=== PATIENT | male | born 1980 | race African-American/Black ===

== ENCOUNTER 2018-04-24 22:48 | Inpatient (IN) | payer MEDICAID ==
[~2018-04-24] VITALS: Ht 182.9 cm; Wt 93.4 kg
[2018-04-24] MEDS ORDERED: SODIUM CHLORIDE 0.9% 1,000 ML IV ONE (23:44)
[2018-04-24] MEDS ORDERED: MORPHINE SULFATE 4 MG/ML CPJ (NOT FOR IM USE) IV STA (23:44)
[2018-04-24] MEDS ORDERED: ONDANSETRON HCL 4MG/2ML INJ IV STA (23:44)
[2018-04-24] MEDS ORDERED: CLOPIDOGREL 75MG TABLET PO ONE (23:45)
[2018-04-25 00:40] LABS: BASOPHILS % 0.5 % (0.0-2.0); EOSINOPHILS % 0.5 % (0.0-5.0); HEMATOCRIT. 41.3 % (42.0-52.0); LYMPHOCYTES % 32.7 % (20.0-50.0); MEAN CORPUSCULAR HEMOGLOBIN 23.6 pg (28.0-32.0); MONOCYTES % 8.7 % (2.0-8.0); NEUTROPHILS % 57.6 % (40.0-76.0); RED BLOOD CELL COUNT 5.51 mill/uL (4.7-6.1)
[2018-04-25 00:51] LABS: CHLORIDE 97 mEq/L (98-107)
[2018-04-25] MEDS ORDERED: ONDANSETRON HCL 4MG/2ML INJ IV STA (01:01)
[2018-04-25] MEDS ORDERED: MORPHINE SULFATE 4 MG/ML CPJ (NOT FOR IM USE) IV STA (01:01)
[2018-04-25 01:13] LABS: PLATELET 98 x1000/uL (130-400)
[2018-04-25] MEDS ORDERED: POTASSIUM CHLORIDE 20MEQ TABLET SR PO ONE (01:15)
[2018-04-25 01:25] LABS: INR 1.1; PARTIAL THROMBOPLASTIN TIME 25.6 sec (23.4-31.0); PROTHROMBIN TIME 10.8 sec (9.1-11.1)
[2018-04-25] MEDS: MORPHINE SULFATE 4 MG/ML CPJ (NOT FOR IM USE) IV PRN ×5 (03:46→21:13)
[2018-04-25 08:00] VITALS: BP 95/52
[2018-04-25 08:30] VITALS: BP 95/52
[2018-04-25 10:36] VITALS: BP 95/52
[2018-04-25] MEDS ORDERED: LISI2.5T47 MT (11:00)
[2018-04-25] MEDS ORDERED: FERR325T6 MT (11:00)
[2018-04-25] MEDS ORDERED: HYDR25TA MT (11:00)
[2018-04-25] MEDS ORDERED: FURO40TA5 MT (11:00)
[2018-04-25] MEDS ORDERED: BENA20TA10 MT (11:00)
[2018-04-25] MEDS ORDERED: LEVE500T19 MT (11:00)
[2018-04-25] MEDS ORDERED: FAMO20TA8 MT (11:00)
[2018-04-25] MEDS ORDERED: S350 MT (11:00)
[2018-04-25] MEDS ORDERED: CLOP75TA33 MT (11:00)
[2018-04-25] MEDS ORDERED: GABA-290 MT (11:00)
[2018-04-25] MEDS: CLOPIDOGREL 75MG TABLET PO SCH (11:30)
[2018-04-25] MEDS ORDERED: ACETAMINOPHEN 325MG TABLET PO PRN (11:30)
[2018-04-25] MEDS ORDERED: HYDROCODONE/ACETAMINOPHEN 5/325MG TABLET PO PRN (11:30)
[2018-04-25] MEDS ORDERED: CLONIDINE 0.1MG TABLET PO PRN (11:30)
[2018-04-25] MEDS ORDERED: IPRATROPIUM/ALBUTEROL 0.5-3(2.5)MG/3ML NEB INH PRN (11:30)
[2018-04-25] MEDS ORDERED: DOCUSATE SODIUM 100MG CAPSULE PO PRN (11:30)
[2018-04-25] MEDS ORDERED: ONDANSETRON HCL 4MG/2ML INJ IV PRN (11:30)
[2018-04-25] MEDS ORDERED: MAGNESIUM/ALUMINUM HYDROXIDE/SIMETHICONE 30ML UDC PO PRN (11:30)
[2018-04-25] MEDS: BENAZEPRIL 10MG TABLET PO SCH (11:30)
[2018-04-25] MEDS: ASPIRIN 81MG EC TABLET PO SCH (11:30)
[2018-04-25 12:00] VITALS: BP 100/56
[2018-04-25] MEDS: LEVETIRACETAM 500MG TABLET PO SCH ×2 (12:24→21:10)
[2018-04-25] MEDS: FERROUS SULFATE 325MG TABLET PO SCH ×2 (12:24→18:33)
[2018-04-25 16:00] VITALS: BP 110/69
[2018-04-25 16:19] LABS: CREATINE KINASE 162 IU/L (39-308); CREATINE KINASE MB FRACTION 2.3 ng/mL (0.5-3.6)
[2018-04-25] MEDS ORDERED: DEXTROSE 50% WATER 50ML SYRINGE IV PRN (18:15)
[2018-04-25] MEDS ORDERED: INFLUENZA VIRUS VACCINE(AFLURIA) 0.5ML SYR IM ONE (19:00)
[2018-04-25] MEDS ORDERED: QUET25TA34 MT (19:31)
[2018-04-25] MEDS ORDERED: PHEN100C4 MT (19:31)
[2018-04-25] MEDS ORDERED: POTA20TA82 MT (19:31)
[2018-04-25] MEDS ORDERED: SIMV80TA70 MT (19:31)
[2018-04-25 20:00] VITALS: BP 117/67
[2018-04-25] MEDS: INSULIN LISPRO 100 UNITS/ML SUBCUT SCH (21:00)
[2018-04-25] MEDS: FAMOTIDINE 20MG TABLET PO SCH (21:11)
[2018-04-25] MEDS: BLOOD SUGAR DIAGNOSTIC STRIP TEST SCH (21:35)
[2018-04-25] MEDS: ZOLPIDEM TARTRATE 5MG TABLET PO PRN (23:37)
[2018-04-26] VITALS: BP 114/68
[2018-04-26 00:14] LABS: CREATINE KINASE 153 IU/L (39-308); CREATINE KINASE MB FRACTION 2.2 ng/mL (0.5-3.6)
[2018-04-26] MEDS: MORPHINE SULFATE 4 MG/ML CPJ (NOT FOR IM USE) IV PRN ×6 (01:00→22:50)
[2018-04-26 04:00] VITALS: BP 116/70
[2018-04-26 06:53] LABS: BASOPHILS % 0.5 % (0.0-2.0); HEMATOCRIT. 36.3 % (42.0-52.0); HEMOGLOBIN. 11.4 g/dL (14.0-18.0); LYMPHOCYTES % 51.5 % (20.0-50.0); MEAN CORPUSCULAR HEMOGLOBIN 23.3 pg (28.0-32.0); MEAN CORPUSCULAR VOLUME 74.3 fL (80.0-94.0); MEAN PLATELET VOLUME 11.3 fl (7.4-10.4); MONOCYTES % 10.4 % (2.0-8.0); NEUTROPHILS % 35.6 % (40.0-76.0); PLATELET 85 x1000/uL (130-400); RED BLOOD CELL COUNT 4.89 mill/uL (4.7-6.1); RED CELL DISTRIBUTION WIDTH 14.8 % (11.6-14.6)
[2018-04-26 06:55] LABS: CHLORIDE 101 mEq/L (98-107)
[2018-04-26 07:23] LABS: HDL CHOLESTEROL 98 mg/dL (40-59); LDL CHOLESTEROL 83 mg/dL (5-100); T4 FREE 0.96 ng/dL (0.76-1.46)
[2018-04-26] MEDS: INSULIN LISPRO 100 UNITS/ML SUBCUT SCH ×4 (07:50→21:00)
[2018-04-26] MEDS: BLOOD SUGAR DIAGNOSTIC STRIP TEST SCH ×4 (07:58→20:48)
[2018-04-26 08:00] VITALS: BP 108/61
[2018-04-26] MEDS: GABAPENTIN 300MG CAPSULE PO SCH (08:57)
[2018-04-26] MEDS: FERROUS SULFATE 325MG TABLET PO SCH ×3 (08:57→17:49)
[2018-04-26] MEDS: LEVETIRACETAM 500MG TABLET PO SCH ×2 (08:57→20:48)
[2018-04-26] MEDS: ASPIRIN 81MG EC TABLET PO SCH (08:57)
[2018-04-26] MEDS: CLOPIDOGREL 75MG TABLET PO SCH (08:57)
[2018-04-26] MEDS: BENAZEPRIL 10MG TABLET PO SCH (08:58)
[2018-04-26] MEDS: FUROSEMIDE 40MG/4ML VIAL IVP SCH (08:58)
[2018-04-26] MEDS ORDERED: HYDROCHLOROTHIAZIDE 25MG TABLET PO SCH (09:00)
[2018-04-26 12:00] VITALS: BP 118/69
[2018-04-26 16:00] VITALS: BP 119/75
[2018-04-26 20:00] VITALS: BP 117/69
[2018-04-26] MEDS: FAMOTIDINE 20MG TABLET PO SCH (20:48)
[2018-04-27] VITALS: BP 112/64
[2018-04-27] MEDS: ZOLPIDEM TARTRATE 5MG TABLET PO PRN (00:42)
[2018-04-27 04:00] VITALS: BP 116/68
[2018-04-27] MEDS: MORPHINE SULFATE 4 MG/ML CPJ (NOT FOR IM USE) IV PRN ×2 (05:34→09:59)
[2018-04-27] MEDS: BLOOD SUGAR DIAGNOSTIC STRIP TEST SCH ×2 (06:50→12:38)
[2018-04-27] MEDS: INSULIN LISPRO 100 UNITS/ML SUBCUT SCH ×2 (07:16→12:41)
[2018-04-27 08:02] VITALS: BP 121/82
[2018-04-27] MEDS ORDERED: REGADENOSON 0.4 MG/5 ML IV SCH (08:45)
[2018-04-27] MEDS: FUROSEMIDE 40MG/4ML VIAL IVP SCH (10:00)
[2018-04-27] MEDS ORDERED: REGADENOSON 0.4 MG/5 ML IV ONE (11:10)
[2018-04-27] MEDS: GABAPENTIN 300MG CAPSULE PO SCH (12:13)
[2018-04-27] MEDS: CLOPIDOGREL 75MG TABLET PO SCH (12:13)
[2018-04-27] MEDS: LEVETIRACETAM 500MG TABLET PO SCH (12:14)
[2018-04-27] MEDS: FERROUS SULFATE 325MG TABLET PO SCH ×2 (12:15→12:50)
[2018-04-27] MEDS: ASPIRIN 81MG EC TABLET PO SCH (12:15)
[2018-04-27] MEDS: BENAZEPRIL 10MG TABLET PO SCH (12:15)
[2018-04-27 12:23] VITALS: BP 116/80
== END 2018-04-27 14:00 | disposition home or self-care (01) | DRG 203 ==
LOC: ER 22:48 → 6WST 04-25 01:08 → EDBEDREQ 04-25 01:09 → EDBEDREQTM 04-25 01:09 → ENRESERV 04-25 06:10
PROVIDERS: ADMIT Internal Medicine; ATTEND Internal Medicine
DX: M94.0 Chondrocostal junction syndrome [Tietze] (principal); D69.6 Thrombocytopenia, unspecified; E87.8 Other disorders of electrolyte and fluid balance, not elsewhere classified; G81.94 Hemiplegia, unspecified affecting left nondominant side; E83.51 Hypocalcemia; I25.10 Atherosclerotic heart disease of native coronary artery without angina pectoris; I42.9 Cardiomyopathy, unspecified; E11.9 Type 2 diabetes mellitus without complications; D50.9 Iron deficiency anemia, unspecified; D63.8 Anemia in other chronic diseases classified elsewhere; J98.11 Atelectasis; I10 Essential (primary) hypertension; J44.9 Chronic obstructive pulmonary disease, unspecified; I25.2 Old myocardial infarction; Z95.0 Presence of cardiac pacemaker; Z95.5 Presence of coronary angioplasty implant and graft; Z82.49 Family history of ischemic heart disease and other diseases of the circulatory system; Z88.8 Allergy status to other drugs, medicaments and biological substances; Z88.6 Allergy status to analgesic agent; E87.6 Hypokalemia
CPT/HCPCS: 36415; 71045; 78452; 80061; 82550; 82553; 82962; 83880; 84439; 84443; 84481; 84484; 90686; 93005; 93017; 93306; 93970; 96361; 96374; 96375; 96376; 99285; A9500; J1815; J1940; J2270; J2405; J2785; J7030

== ENCOUNTER 2020-08-12 01:58 | Emergency (ER) | payer MEDICAID ==
[~2020-08-12] VITALS: Ht 190.5 cm; Wt 93.0 kg
[~2020-08-12 01:58] MED LIST: BENA20TA10 MT; CARI350T28 MT; CLOP75TA33 MT; FAMO20TA8 MT; FERR325T6 MT; FURO40TA5 MT; GABA-290 MT; HYDR25TA MT; LEVE500T19 MT; LISI2.5T47 MT; PHEN100C4 MT; POTA20TA82 MT; QUET25TA34 MT; SIMV80TA90 MT
[2020-08-12] MEDS ORDERED: ASPIRIN 81MG TABLET PO ONE (02:30)
[2020-08-12] MEDS ORDERED: NITROGLYCERIN 0.4MG TABLET SL SL ONE (02:30)
[2020-08-12] MEDS ORDERED: DIPHENHYDRAMINE 25MG CAPSULE PO ONE (02:30)
[2020-08-12] MEDS ORDERED: LIDOCAINE 5% PATCH TOP SCH (02:45)
[2020-08-12 02:50] LABS: BASOPHILS % 0.3 % (0.0-2.0); EOSINOPHILS % 1.3 % (0.0-5.0); HEMOGLOBIN. 11.8 g/dL (14.0-18.0); LYMPHOCYTES % 15.8 % (20.0-50.0); MEAN CORPUSCULAR HEMOGLOBIN 24.2 pg (28.0-32.0); MEAN CORPUSCULAR VOLUME 76.1 fL (80.0-94.0); MEAN PLATELET VOLUME 10.9 fl (7.4-10.4); MONOCYTES % 11.8 % (2.0-8.0); NEUTROPHILS % 70.8 % (40.0-76.0); PLATELET 113 x1000/uL (130-400); RED BLOOD CELL COUNT 4.87 mill/uL (4.7-6.1); RED CELL DISTRIBUTION WIDTH 14.9 % (11.6-14.6)
[2020-08-12 03:02] LABS: CHLORIDE 99 mEq/L (98-107)
[2020-08-12] MEDS ORDERED: POTASSIUM CHLORIDE 20MEQ TABLET SR PO NR (03:15)
[2020-08-12 04:00] VITALS: BP 125/77
== END 2020-08-12 05:59 | disposition home or self-care (01) ==
LOC: ER 01:58
DX: E87.6 Hypokalemia (principal); R07.89 Other chest pain; I25.2 Old myocardial infarction; R46.89 Other symptoms and signs involving appearance and behavior; J44.9 Chronic obstructive pulmonary disease, unspecified; J45.909 Unspecified asthma, uncomplicated; G40.909 Epilepsy, unspecified, not intractable, without status epilepticus; E78.00 Pure hypercholesterolemia, unspecified; Z95.5 Presence of coronary angioplasty implant and graft; Z91.14 Patient's other noncompliance with medication regimen; Z95.0 Presence of cardiac pacemaker; Z88.6 Allergy status to analgesic agent; Z88.8 Allergy status to other drugs, medicaments and biological substances; Z98.84 Bariatric surgery status
CPT/HCPCS: 36415; 71045; 80053; 83880; 84484; 85025; 93005; 99285; Q0163; Z7610

== ENCOUNTER 2021-02-17 22:17 | Inpatient (IN) | payer MEDICAID ==
[~2021-02-17] VITALS: Ht 188 cm; Wt 111.1 kg
[~2021-02-17 22:17] MED LIST changes: -QUET25TA34 MT; +QUET25TA36 MT
[2021-02-17] MEDS ORDERED: MORPHINE SULFATE 4 MG/ML CPJ (NOT FOR IM USE) IV STA (23:13)
[2021-02-18] MEDS ORDERED: DIPHENHYDRAMINE 25MG CAPSULE PO NR
[2021-02-18 00:09] LABS: BASOPHILS % 0.9 % (0.0-2.0); EOSINOPHILS % 2.9 % (0.0-5.0); HEMATOCRIT. 31.2 % (42.0-52.0); HEMOGLOBIN. 9.8 g/dL (14.0-18.0); LYMPHOCYTES % 36.9 % (20.0-50.0); MEAN CORPUSCULAR HEMOGLOBIN 22.8 pg (28.0-32.0); MEAN CORPUSCULAR VOLUME 72.9 fL (80.0-94.0); MEAN PLATELET VOLUME 10.5 fl (7.4-10.4); MONOCYTES % 10.5 % (2.0-8.0); NEUTROPHILS % 48.8 % (40.0-76.0); PLATELET 113 x1000/uL (130-400); RED BLOOD CELL COUNT 4.28 mill/uL (4.7-6.1); RED CELL DISTRIBUTION WIDTH 14.8 % (11.6-14.6)
[2021-02-18 00:14] LABS: INR 1.1; PROTHROMBIN TIME 11.7 sec (9.6-11.0)
[2021-02-18] MEDS ORDERED: SODIUM CHLORIDE 0.9% 500 ML IV ONE (03:15)
[2021-02-18] MEDS ORDERED: MORPHINE SULFATE 2 MG/ML CPJ (NOT FOR IM USE) IV NR (04:45)
[2021-02-18 04:58] LABS: CHLORIDE 102 mEq/L (98-107)
[2021-02-18 09:55] VITALS: BP 117/72
[2021-02-18] MEDS ORDERED: ONDANSETRON HCL 4MG/2ML INJ IV PRN (10:30)
[2021-02-18] MEDS ORDERED: KETOROLAC 30MG/ML VIAL IV PRN (10:30)
[2021-02-18 12:00] VITALS: BP 132/71
[2021-02-18] MEDS: TRAMADOL 50MG TABLET PO PRN (12:17)
[2021-02-18] MEDS: DIPHENHYDRAMINE 25MG CAPSULE PO PRN (12:18)
[2021-02-18] MEDS ORDERED: MEDICATION NOT ON FORMULARY EA (Simvastatin 1 TAB) MT SCH (12:45)
[2021-02-18] MEDS ORDERED: MEDICATION NOT ON FORMULARY EA (Benazepril Hcl 1 TAB) MT SCH (12:45)
[2021-02-18] MEDS ORDERED: MEDICATION NOT ON FORMULARY EA (Gabapentin 1 TAB) MT SCH (13:00)
[2021-02-18] MEDS ORDERED: *PATIENT'S OWN MEDICATION STORAGE XX SCH (13:15)
[2021-02-18] MEDS ORDERED: NALOXONE HCL 0.4MG/ML VIAL IV PRN (13:30)
[2021-02-18 14:00] VITALS: BP 123/74
[2021-02-18] MEDS ORDERED: CARISOPRODOL 350 MG TABLET PO PRN (14:30)
[2021-02-18] MEDS: PHENYTOIN SODIUM EXTENDED 100MG CAPSULE PO SCH ×2 (14:32→17:04)
[2021-02-18] MEDS: POTASSIUM CHLORIDE 20MEQ TABLET SR PO SCH (14:32)
[2021-02-18] MEDS: BENAZEPRIL 10MG TABLET PO SCH (14:32)
[2021-02-18] MEDS: CLOPIDOGREL 75MG TABLET PO SCH (14:33)
[2021-02-18] MEDS: HYDROCHLOROTHIAZIDE 25MG TABLET PO SCH (14:33)
[2021-02-18] MEDS: LISINOPRIL 2.5MG TABLET PO SCH (14:33)
[2021-02-18] MEDS: FUROSEMIDE 40MG TABLET PO SCH (14:36)
[2021-02-18 16:10] VITALS: BP 116/75
[2021-02-18] MEDS ORDERED: MEDICATION NOT ON FORMULARY EA (Ferrous Sulfate 1 TAB) MT SCH (17:00)
[2021-02-18] MEDS: GABAPENTIN 300MG CAPSULE PO SCH (17:04)
[2021-02-18] MEDS: LEVETIRACETAM 500MG TABLET PO SCH (17:04)
[2021-02-18] MEDS: FERROUS SULFATE 325MG TABLET PO SCH (17:04)
[2021-02-18] MEDS ORDERED: OXYC-611 PO (17:59)
[2021-02-18] MEDS ORDERED: NON FORMULARY PATIENT HOME MED XX SCH (18:15)
[2021-02-18] MEDS: OXYCODONE HCL 10MG TABLET SR 12HR PO SCH (19:55)
[2021-02-18 20:00] VITALS: BP 126/59
[2021-02-18] MEDS: QUETIAPINE FUMARATE 25MG TABLET PO SCH (21:18)
[2021-02-18] MEDS: ATORVASTATIN CALCIUM 40MG TABLET PO SCH (21:18)
[2021-02-18] MEDS: FAMOTIDINE 20MG TABLET PO SCH (21:18)
[2021-02-19] VITALS: BP 100/59
[2021-02-19 04:00] VITALS: BP 105/51
[2021-02-19 05:25] LABS: BASOPHILS % 0.7 % (0.0-2.0); EOSINOPHILS % 5.8 % (0.0-5.0); HEMATOCRIT. 38.7 % (42.0-52.0); HEMOGLOBIN. 12.1 g/dL (14.0-18.0); LYMPHOCYTES % 43.5 % (20.0-50.0); MEAN CORPUSCULAR HEMOGLOBIN 22.8 pg (28.0-32.0); MEAN CORPUSCULAR VOLUME 73.1 fL (80.0-94.0); MEAN PLATELET VOLUME 10.2 fl (7.4-10.4); MONOCYTES % 13.3 % (2.0-8.0); NEUTROPHILS % 36.7 % (40.0-76.0); PLATELET 122 x1000/uL (130-400); RED CELL DISTRIBUTION WIDTH 14.3 % (11.6-14.6)
[2021-02-19] MEDS: TRAMADOL 50MG TABLET PO PRN ×2 (05:38→20:39)
[2021-02-19] MEDS: DIPHENHYDRAMINE 25MG CAPSULE PO PRN ×4 (05:40→17:20)
[2021-02-19 06:11] LABS: CHLORIDE 99 mEq/L (98-107)
[2021-02-19 06:21] LABS: LDL CHOLESTEROL 118 mg/dL (5-100)
[2021-02-19 06:23] LABS: CREATINE KINASE 274 IU/L (39-308)
[2021-02-19 06:24] LABS: HDL CHOLESTEROL 97 mg/dL (40-59)
[2021-02-19 08:00] VITALS: BP 114/78
[2021-02-19] MEDS: FERROUS SULFATE 325MG TABLET PO SCH ×2 (09:26→17:20)
[2021-02-19] MEDS: FUROSEMIDE 40MG TABLET PO SCH (09:26)
[2021-02-19] MEDS: BENAZEPRIL 10MG TABLET PO SCH (09:26)
[2021-02-19] MEDS: HYDROCHLOROTHIAZIDE 25MG TABLET PO SCH (09:26)
[2021-02-19] MEDS: LISINOPRIL 2.5MG TABLET PO SCH (09:26)
[2021-02-19] MEDS: LEVETIRACETAM 500MG TABLET PO SCH ×2 (09:26→17:20)
[2021-02-19] MEDS: POTASSIUM CHLORIDE 20MEQ TABLET SR PO SCH (09:27)
[2021-02-19] MEDS: PHENYTOIN SODIUM EXTENDED 100MG CAPSULE PO SCH ×3 (09:27→17:20)
[2021-02-19] MEDS: GABAPENTIN 300MG CAPSULE PO SCH ×3 (09:27→17:20)
[2021-02-19] MEDS: FAMOTIDINE 20MG TABLET PO SCH ×2 (09:27→20:39)
[2021-02-19] MEDS: CLOPIDOGREL 75MG TABLET PO SCH (09:27)
[2021-02-19] MEDS: OXYCODONE HCL 10MG TABLET SR 12HR PO SCH ×3 (09:29→17:19)
[2021-02-19 12:00] VITALS: BP 120/77
[2021-02-19 16:00] VITALS: BP 113/57
[2021-02-19] MEDS ORDERED: HYDRALAZINE 20MG/ML VIAL IV PRN (19:45)
[2021-02-19 20:00] VITALS: BP 99/61
[2021-02-19] MEDS: QUETIAPINE FUMARATE 25MG TABLET PO SCH (20:38)
[2021-02-19] MEDS: ATORVASTATIN CALCIUM 40MG TABLET PO SCH (20:39)
[2021-02-20 00:14] LABS: *AMPHETAMINES SCREEN URINE NEGATIVE (NEGATIVE); CANNABINOID URINE SCREEN NEGATIVE (NEGATIVE); METHADONE URINE SCREEN NEGATIVE (NEGATIVE); OPIATES URINE SCREEN PRESUMTIVE POSITIVE (NEGATIVE); PHENCYCLIDINE URINE SCREEN NEGATIVE (NEGATIVE)
[2021-02-20 00:15] LABS: *BARBITURATES SCREEN URINE NEGATIVE (NEGATIVE); *BENZODIAZEPINES SCREEN URINE NEGATIVE (NEGATIVE); *COCAINE SCREEN URINE NEGATIVE (NEGATIVE)
[2021-02-20] MEDS: TRAMADOL 50MG TABLET PO PRN ×2 (03:06→11:40)
[2021-02-20] MEDS: DIPHENHYDRAMINE 25MG CAPSULE PO PRN ×3 (03:07→16:28)
[2021-02-20 04:00] VITALS: BP 107/61
[2021-02-20 08:00] VITALS: BP 112/68
[2021-02-20] MEDS: GABAPENTIN 300MG CAPSULE PO SCH ×3 (08:05→16:28)
[2021-02-20] MEDS: POTASSIUM CHLORIDE 20MEQ TABLET SR PO SCH (08:06)
[2021-02-20] MEDS: PHENYTOIN SODIUM EXTENDED 100MG CAPSULE PO SCH ×3 (08:06→16:28)
[2021-02-20] MEDS: FUROSEMIDE 40MG TABLET PO SCH (08:06)
[2021-02-20] MEDS: LEVETIRACETAM 500MG TABLET PO SCH ×2 (08:06→16:28)
[2021-02-20] MEDS: OXYCODONE HCL 10MG TABLET SR 12HR PO SCH ×3 (08:06→17:01)
[2021-02-20] MEDS: FERROUS SULFATE 325MG TABLET PO SCH ×2 (08:07→16:28)
[2021-02-20] MEDS: FAMOTIDINE 20MG TABLET PO SCH (08:07)
[2021-02-20] MEDS: HYDROCHLOROTHIAZIDE 25MG TABLET PO SCH (08:07)
[2021-02-20] MEDS: BENAZEPRIL 10MG TABLET PO SCH (08:07)
[2021-02-20] MEDS: CLOPIDOGREL 75MG TABLET PO SCH (08:07)
[2021-02-20] MEDS ORDERED: REGADENOSON 0.4 MG/5 ML IV NR (09:00)
[2021-02-20] MEDS ORDERED: FENTANYL CITRATE/PF 50MCG/ML 5ML VIAL ONE (09:01)
[2021-02-20] MEDS ORDERED: DIPHENHYDRAMINE 50MG/ML VIAL IV NR (09:01)
[2021-02-20] MEDS ORDERED: DIPHENHYDRAMINE 50MG/ML VIAL ONE (09:01)
[2021-02-20] MEDS ORDERED: MIDAZOLAM HCL 5 MG/5 ML VIAL ONE (09:01)
[2021-02-20] MEDS ORDERED: REGADENOSON 0.4 MG/5 ML IV ONE (09:11)
[2021-02-20 11:03] LABS: INR 1.1; PARTIAL THROMBOPLASTIN TIME 21.2 sec (23.4-31.0); PROTHROMBIN TIME 11.5 sec (9.6-11.0)
[2021-02-20 11:04] LABS: CHLORIDE 100 mEq/L (98-107)
[2021-02-20 11:32] LABS: HEMATOCRIT. 40.9 % (42.0-52.0); HEMOGLOBIN. 13.2 g/dL (14.0-18.0); MEAN CORPUSCULAR HEMOGLOBIN 23.2 pg (28.0-32.0); MEAN CORPUSCULAR VOLUME 72.2 fL (80.0-94.0); RED BLOOD CELL COUNT 5.67 mill/uL (4.7-6.1); RED CELL DISTRIBUTION WIDTH 14.7 % (11.6-14.6)
[2021-02-20 12:00] VITALS: BP 114/69
[2021-02-20] MEDS ORDERED: BENA20TA10 MT (12:53)
[2021-02-20] MEDS ORDERED: FAMO20TA8 MT (12:57)
[2021-02-20] MEDS ORDERED: QUET25TA36 MT (12:57)
[2021-02-20] MEDS ORDERED: LISI2.5T47 MT (12:57)
[2021-02-20] MEDS ORDERED: LEVE500T19 MT (12:57)
[2021-02-20] MEDS ORDERED: HYDR-4001 MT (12:57)
[2021-02-20] MEDS ORDERED: PHEN100C4 MT (12:57)
[2021-02-20] MEDS ORDERED: FURO40TA5 MT (12:57)
[2021-02-20] MEDS ORDERED: CLOP75TA33 MT (12:57)
[2021-02-20] MEDS ORDERED: HYDR25TA MT (12:57)
[2021-02-20] MEDS ORDERED: POTA20TA82 MT (12:57)
[2021-02-20] MEDS ORDERED: GABA-290 MT (12:57)
[2021-02-20] MEDS ORDERED: SIMV80TA90 MT (12:57)
[2021-02-20 13:20] LABS: PLATELET 130 x1000/uL (130-400)
[2021-02-20 13:23] LABS: PLATELET ESTIMATE NORMAL
[2021-02-20 14:53] VITALS: BP 114/69
[2021-02-20 16:00] VITALS: BP 108/66
[2021-02-20 17:01] VITALS: BP 114/69
== END 2021-02-20 18:00 | disposition home or self-care (01) | DRG 203 ==
LOC: ER 22:17 → MICUSO 02-18 01:55 → 6WST 02-18 07:18
PROVIDERS: ADMIT Internal Medicine; ATTEND Internal Medicine
PROC: 4B02XSZ Measurement of Cardiac Pacemaker, External Approach (ICD-10-PCS; principal; 2021-02-20)
DX: M94.0 Chondrocostal junction syndrome [Tietze] (principal); I11.0 Hypertensive heart disease with heart failure; I50.9 Heart failure, unspecified; E83.51 Hypocalcemia; D50.9 Iron deficiency anemia, unspecified; I25.10 Atherosclerotic heart disease of native coronary artery without angina pectoris; G62.9 Polyneuropathy, unspecified; I25.2 Old myocardial infarction; E78.00 Pure hypercholesterolemia, unspecified; E66.01 Morbid (severe) obesity due to excess calories; Z20.822 Contact with and (suspected) exposure to COVID-19; G40.909 Epilepsy, unspecified, not intractable, without status epilepticus; G47.00 Insomnia, unspecified; Z77.22 Contact with and (suspected) exposure to environmental tobacco smoke (acute) (chronic); Z88.6 Allergy status to analgesic agent; Z95.5 Presence of coronary angioplasty implant and graft; Z68.31 Body mass index [BMI] 31.0-31.9, adult; Z88.8 Allergy status to other drugs, medicaments and biological substances; Z79.02 Long term (current) use of antithrombotics/antiplatelets; Z79.899 Other long term (current) drug therapy; Z71.3 Dietary counseling and surveillance; Z95.0 Presence of cardiac pacemaker; Z76.5 Malingerer [conscious simulation]
CPT/HCPCS: 36415; 71045; 78452; 80053; 80061; 80305; 82550; 82553; 83735; 83880; 84443; 84484; 85025; 85379; 87426; 93005; 93306; 99285; A9500; J1200; J2250; J2270; J2785; J3010; J7040; Q0163

== ENCOUNTER 2022-07-21 14:07 | Emergency (ER) | payer MEDICAID ==
[~2022-07-21] VITALS: Ht 188 cm; Wt 89.0 kg
[~2022-07-21 14:07] MED LIST changes: +BENA-8 MT; -BENA20TA10 MT; +HYDR-4001 MT; +OXYC-611 PO; +POTA-205 MT; -POTA20TA82 MT
[2022-07-21 15:45] LABS: BASOPHILS % 0.3 % (0.0-2.0); EOSINOPHILS % 0.7 % (0.0-5.0); HEMATOCRIT. 37.4 % (42.0-52.0); HEMOGLOBIN. 12.1 g/dL (14.0-18.0); LYMPHOCYTES % 17.9 % (20.0-50.0); MEAN CORPUSCULAR HEMOGLOBIN 24.7 pg (28.0-32.0); MEAN PLATELET VOLUME 9.6 fl (7.4-10.4); MONOCYTES % 7.4 % (2.0-8.0); NEUTROPHILS % 73.7 % (40.0-76.0); PLATELET 179 x1000/uL (130-400); RED BLOOD CELL COUNT 4.93 mill/uL (4.7-6.1); RED CELL DISTRIBUTION WIDTH 14.4 % (11.6-14.6)
[2022-07-21 15:52] LABS: CHLORIDE 105 mEq/L (98-107)
[2022-07-21] MEDS ORDERED: MORPHINE SULFATE 4 MG/ML CPJ (NOT FOR IM USE) IV ONE (18:30)
[2022-07-21] MEDS ORDERED: HYDROMORPHONE HCL/PF 2MG/ML CPJ IV PRN (20:30)
[2022-07-21] MEDS ORDERED: ONDANSETRON HCL 4MG/2ML INJ IV PRN (20:30)
[2022-07-21] MEDS ORDERED: MAGNESIUM/ALUMINUM HYDROXIDE/SIMETHICONE 30ML UDC PO PRN (20:30)
[2022-07-21] MEDS ORDERED: CLONIDINE 0.1MG TABLET PO PRN (20:30)
[2022-07-21] MEDS ORDERED: ZOLPIDEM TARTRATE 5MG TABLET PO PRN (20:30)
[2022-07-21] MEDS ORDERED: GUAIFENESIN 200MG/10ML SUGAR FREE UDC PO PRN (20:30)
[2022-07-21] MEDS ORDERED: IBUPROFEN 600MG TABLET PO PRN (20:30)
[2022-07-21 22:47] LABS: CHLORIDE 104 mEq/L (98-107)
[2022-07-21] MEDS ORDERED: DIPHENHYDRAMINE 50MG/ML VIAL IV PRN (23:45)
[2022-07-22 04:08] LABS: BASOPHILS % 0.6 % (0.0-2.0); EOSINOPHILS % 0.6 % (0.0-5.0); HEMATOCRIT. 35.1 % (42.0-52.0); HEMOGLOBIN. 11.3 g/dL (14.0-18.0); LYMPHOCYTES % 20.8 % (20.0-50.0); MEAN CORPUSCULAR HEMOGLOBIN 24.3 pg (28.0-32.0); MEAN CORPUSCULAR VOLUME 75.7 fL (80.0-94.0); MEAN PLATELET VOLUME 9.4 fl (7.4-10.4); MONOCYTES % 7.8 % (2.0-8.0); NEUTROPHILS % 70.2 % (40.0-76.0); PLATELET 176 x1000/uL (130-400); RED BLOOD CELL COUNT 4.64 mill/uL (4.7-6.1); RED CELL DISTRIBUTION WIDTH 14.1 % (11.6-14.6)
[2022-07-22 04:17] LABS: CHLORIDE 105 mEq/L (98-107)
[2022-07-22] MEDS: HYDROMORPHONE HCL/PF 2MG/ML CPJ IV PRN ×2 (04:22→11:12)
[2022-07-22 04:33] LABS: HDL CHOLESTEROL 69 mg/dL (40-59); LDL CHOLESTEROL 99 mg/dL (5-100); T4 FREE 0.85 ng/dL (0.76-1.46)
[2022-07-22] MEDS ORDERED: LEVETIRACETAM 500MG TABLET PO SCH (09:00)
[2022-07-22] MEDS ORDERED: ENOXAPARIN 40MG/0.4ML SYR SUBCUT SCH (09:00)
[2022-07-22] MEDS ORDERED: CLOPIDOGREL 75MG TABLET PO SCH (09:00)
[2022-07-22] MEDS ORDERED: HYDROCHLOROTHIAZIDE 25MG TABLET PO SCH (09:00)
[2022-07-22] MEDS ORDERED: FAMOTIDINE 20MG/2ML VIAL IV SCH (09:00)
[2022-07-22] MEDS ORDERED: LISINOPRIL 20MG TABLET PO SCH (09:00)
[2022-07-22 09:10] LABS: CLARITY URINE CLEAR (CLEAR); COLOR URINE DARK YELLOW (YELLOW); KETONES URINE TRACE (NEGATIVE); LEUKOCYTE ESTERASE URINE NEGATIVE (NEGATIVE); NITRITE URINE NEGATIVE (NEGATIVE); OCCULT BLOOD URINE NEGATIVE (NEGATIVE); PH URINE 7.5 (4.5-8.0); PROTEIN URINE TRACE (NEGATIVE); SPECIFIC GRAVITY URINE 1.032 (1.005-1.030)
[2022-07-22 09:49] LABS: *AMPHETAMINES SCREEN URINE NEGATIVE (NEGATIVE); *BARBITURATES SCREEN URINE NEGATIVE (NEGATIVE); *BENZODIAZEPINES SCREEN URINE PRESUMTIVE POSITIVE (NEGATIVE); *COCAINE SCREEN URINE NEGATIVE (NEGATIVE); CANNABINOID URINE SCREEN NEGATIVE (NEGATIVE); METHADONE URINE SCREEN NEGATIVE (NEGATIVE); OPIATES URINE SCREEN PRESUMTIVE POSITIVE (NEGATIVE); PHENCYCLIDINE URINE SCREEN NEGATIVE (NEGATIVE)
[2022-07-22 11:12] VITALS: BP 124/75
== END 2022-07-22 13:51 | disposition left against medical advice (07) ==
LOC: ER 14:07 → EDBEDREQTM 19:08 → EDBEDREQ 19:08 → ER 07-22 13:51 → CANBEDREQ 07-23 07:54
DX: R07.89 Other chest pain (principal); R00.2 Palpitations; I11.0 Hypertensive heart disease with heart failure; I50.9 Heart failure, unspecified; G40.909 Epilepsy, unspecified, not intractable, without status epilepticus; E78.5 Hyperlipidemia, unspecified; Z20.822 Contact with and (suspected) exposure to COVID-19; I25.2 Old myocardial infarction; Z95.0 Presence of cardiac pacemaker; Z79.899 Other long term (current) drug therapy; Z88.6 Allergy status to analgesic agent; Z88.8 Allergy status to other drugs, medicaments and biological substances
CPT/HCPCS: 36415; 71045; 80048; 80053; 80061; 80305; 81003; 82962; 83036; 83880; 84439; 84443; 84484; 85025; 87426; 93005; 96374; 96375; 99285; C9803; J1170; J1200; J1650; J2270; J3490

== ENCOUNTER 2022-11-14 15:24 | Emergency (ER) | payer MEDICAID ==
[~2022-11-14] VITALS: Ht 188 cm; Wt 100.0 kg
[2022-11-14] MEDS ORDERED: DIPHENHYDRAMINE 25MG CAPSULE PO ONE (16:15)
[2022-11-14] MEDS ORDERED: ACETAMINOPHEN 325MG TABLET PO ONE (16:15)
[2022-11-14 16:49] LABS: CHLORIDE 103 mEq/L (98-107)
[2022-11-14 16:52] LABS: BASOPHILS % 0.6 % (0.0-2.0); EOSINOPHILS % 1.4 % (0.0-5.0); HEMATOCRIT. 40.8 % (42.0-52.0); HEMOGLOBIN. 13.1 g/dL (14.0-18.0); LYMPHOCYTES % 36.2 % (20.0-50.0); MEAN CORPUSCULAR HEMOGLOBIN 24.9 pg (28.0-32.0); MEAN CORPUSCULAR VOLUME 77.7 fL (80.0-94.0); MEAN PLATELET VOLUME 11.7 fl (7.4-10.4); MONOCYTES % 11.3 % (2.0-8.0); NEUTROPHILS % 50.5 % (40.0-76.0); PLATELET 89 x1000/uL (130-400); RED BLOOD CELL COUNT 5.25 mill/uL (4.7-6.1); RED CELL DISTRIBUTION WIDTH 14.2 % (11.6-14.6)
[2022-11-14] MEDS ORDERED: HYDROCODONE/ACETAMINOPHEN 5/325MG TABLET PO ONE (17:45)
[2022-11-14 18:27] VITALS: BP 120/70
== END 2022-11-14 20:15 | disposition home or self-care (01) ==
LOC: ER 15:24 → CANBEDREQ 21:24
DX: R07.89 Other chest pain (principal); J45.909 Unspecified asthma, uncomplicated; I50.9 Heart failure, unspecified; I25.2 Old myocardial infarction; Z86.73 Personal history of transient ischemic attack (TIA), and cerebral infarction without residual deficits
CPT/HCPCS: 36415; 71045; 80053; 83880; 84484; 85025; 93005; 99285; Z7610

== ENCOUNTER 2023-01-06 12:38 | Emergency (ER) | payer MEDICAID ==
[2023-01-06] MEDS ORDERED: HYDROCODONE/ACETAMINOPHEN 5/325MG TABLET PO ONE (13:15)
[2023-01-06] MEDS ORDERED: DIPHENHYDRAMINE 25MG CAPSULE PO ONE (13:15)
[2023-01-06 15:39] LABS: CHLORIDE 108 mEq/L (98-107)
[2023-01-06] MEDS ORDERED: MORPHINE SULFATE 4 MG/ML CPJ (NOT FOR IM USE) IV ONE (15:45)
[2023-01-06] MEDS ORDERED: GABA-290 MT (17:07)
[2023-01-06 17:12] LABS: HEMATOCRIT. 40.1 % (42.0-52.0); HEMOGLOBIN. 12.3 g/dL (14.0-18.0); MEAN CORPUSCULAR HEMOGLOBIN 24.8 pg (28.0-32.0); MEAN PLATELET VOLUME 11.4 fl (7.4-10.4); PLATELET 63 x1000/uL (130-400); RED BLOOD CELL COUNT 4.95 mill/uL (4.7-6.1); RED CELL DISTRIBUTION WIDTH 14.5 % (11.6-14.6)
[2023-01-06 17:16] LABS: INR 1.1; PROTHROMBIN TIME 11.3 sec (9.6-11.0)
[2023-01-06 17:30] VITALS: BP 130/68; PULSE 91; RESP 16
[2023-01-06 19:33] LABS: PLATELET ESTIMATE SLIGHTLY DECREASED
== END 2023-01-06 18:07 | disposition home or self-care (01) ==
LOC: ER 14:29
DX: R07.89 Other chest pain (principal); J45.909 Unspecified asthma, uncomplicated; I50.9 Heart failure, unspecified; I25.2 Old myocardial infarction; Z86.73 Personal history of transient ischemic attack (TIA), and cerebral infarction without residual deficits; Z79.899 Other long term (current) drug therapy
CPT/HCPCS: 99285; 96374; 71045; 80053; 82962; 85025; 85610; 84484; 36415; 93005; Q0163; J2270

== ENCOUNTER 2023-07-16 17:48 | Emergency (ER) | payer MEDICAID ==
[2023-07-16 17:50] VITALS: BP 144/84; PULSE 90; RESP 26
== END 2023-07-16 18:19 | disposition left against medical advice (07) ==
LOC: ER 17:48
DX: R07.89 Other chest pain (principal); J45.909 Unspecified asthma, uncomplicated; I50.9 Heart failure, unspecified; I25.2 Old myocardial infarction; Z53.21 Procedure and treatment not carried out due to patient leaving prior to being seen by health care provider; Z91.011 Allergy to milk products; Z88.6 Allergy status to analgesic agent; Z88.8 Allergy status to other drugs, medicaments and biological substances; Z79.899 Other long term (current) drug therapy; Z86.73 Personal history of transient ischemic attack (TIA), and cerebral infarction without residual deficits
CPT/HCPCS: 93005; 99283